=== PATIENT | female | born 1995 | race Native Hawaiian/Other Pacific Islander ===

== ENCOUNTER 2017-06-27 16:03 | Emergency (ER) | payer OTHER ==
[~2017-06-27] VITALS: Ht 157.5 cm; Wt 50.0 kg
[2017-06-27 16:04] VITALS: BP 118/64
[2017-06-27] MEDS ORDERED: NORC1TAB4 PO (18:08)
[2017-06-27] MEDS ORDERED: CLIN150C14 PO (18:08)
[2017-06-27] MEDS ORDERED: NORCOTAB PO (19:36)
== END 2017-06-27 18:13 | disposition home or self-care (01) ==
LOC: M ED 16:03
DX: R68.84 Jaw pain (principal); Z87.448 Personal history of other diseases of urinary system; Z88.0 Allergy status to penicillin

== ENCOUNTER 2017-07-09 02:32 | Emergency (ER) | payer OTHER ==
[~2017-07-09] VITALS: Ht 160 cm; Wt 50.0 kg
[~2017-07-09 02:32] MED LIST: CLIN150C14 PO; NORC1TAB4 PO; NORCOTAB PO
[2017-07-09] MEDS ORDERED: METAL LOCK LOOP XX ONE (03:53)
[2017-07-09] MEDS ORDERED: ZOFR4TAB3 PO (07:20)
[2017-07-09] MEDS ORDERED: ONDANSETRON 4 MG ORAL DISINTEGRATING TAB (S0181) PO ONE (07:30)
[2017-07-09 07:32] VITALS: BP 121/74
== END 2017-07-09 07:33 | disposition home or self-care (01) ==
LOC: M ED 02:32
DX: L42 Pityriasis rosea (principal); B09 Unspecified viral infection characterized by skin and mucous membrane lesions; J06.9 Acute upper respiratory infection, unspecified; Z88.0 Allergy status to penicillin

== ENCOUNTER 2017-10-23 19:20 | Emergency (ER) | payer OTHER ==
[2017-10-23] MEDS: ACETAMINOPHEN 325 MG TAB PO (20:00)
[2017-10-23 20:08] LABS: BASO # 0.1 10^3/uL (0.0-0.2); BASO % 0.6 % (0.0-1.0); EOS # 0.3 10^3/uL (0.0-0.50); EOS % 2.6 % (0.0-3.0); HEMATOCRIT 34.5 % (36.0-47.0); IMMATURE GRANULOCYTE % 0.3 % (0-3.0); LYMPH # 2.8 10^3/uL (1.5-6.5); LYMPH % 25.4 % (24.0-44.0); MEAN CORPUSCULAR HEMOGLOBIN 31.3 pg (27.0-33.0); MEAN CORPUSCULAR HGB CONC 34.8 g/dl (32.0-36.5); MEAN CORPUSCULAR VOLUME 89.8 fl (80.0-96.0); MONO # 1.3 10^3/uL (0.0-0.8); MONO % 12.2 % (0.0-5.0); NEUTROPHILS # 6.4 10^3/uL (1.8-7.7); NEUTROPHILS % 58.9 % (36.0-66.0); PLATELET COUNT, AUTOMATED 278 10^3/uL (150-450); RED BLOOD COUNT 3.84 10^6/uL (4.00-5.40); RED CELL DISTRIBUTION WIDTH 11.6 % (11.5-14.5); WHITE BLOOD COUNT 10.9 10^3/uL (4.0-10.0)
[2017-10-23 20:36] LABS: ANION GAP 7 MEQ/L (8-16); BLOOD UREA NITROGEN 9 MG/DL (7-18); CALCIUM LEVEL 8.6 MG/DL (8.5-10.1); CARBON DIOXIDE LEVEL 25 MEQ/L (21-32); CHLORIDE LEVEL 110 MEQ/L (98-107); CREATININE FOR GFR 0.63 MG/DL (0.55-1.30); GLOMERULAR FILTRATION RATE > 60.0 (>60); GLUCOSE, FASTING 82 MG/DL (70-100); HCG, SERUM QUANTITATIVE < 1.0 MIU/ML; POTASSIUM SERUM 3.9 MEQ/L (3.5-5.1); SODIUM LEVEL 142 MEQ/L (136-145)
[2017-10-23 20:45] LABS: APPEARANCE, URINE CLEAR (CLEAR); BACTERIA, URINE AUTO 1+ (NEGATIVE); BILIRUBIN, URINE AUTO NEGATIVE (NEGATIVE); BLOOD, URINE BLOOD 3+ (NEGATIVE); COLOR, URINE STRAW (YELLOW); GLUCOSE, URINE (UA) AUTO NEGATIVE (NEGATIVE); KETONE, URINE AUTO NEGATIVE (NEGATIVE); LEUKOCYTE ESTERASE, URINE AUTO NEGATIVE (NEGATIVE); NITRITE, URINE AUTO NEGATIVE (NEGATIVE); PROTEIN, URINE AUTO NEGATIVE (NEGATIVE); RBC, URINE AUTO 16 /HPF (0-3); SPECIFIC GRAVITY URINE AUTO 1.004 (1.002-1.035); SQUAMOUS EPITHELIAL CELL UR AU 0 /HPF (0-6); UROBILINOGEN, URINE AUTO 0.2 mg/dL (0.0-2.0); WBC, URINE AUTO 1 /HPF (0-3)
== END 2017-10-23 22:14 | disposition home or self-care (01) ==
LOC: M ED 19:20
DX: N93.9 Abnormal uterine and vaginal bleeding, unspecified (principal); Z88.0 Allergy status to penicillin
CPT/HCPCS: 76801

== ENCOUNTER 2017-12-29 20:54 | Emergency (ER) | payer OTHER ==
[2017-12-29] MEDS: NS 1,000 ML IV (21:30)
[2017-12-29] MEDS: ONDANSETRON 4MG/2ML VIAL (J2405) IV (21:30)
[2017-12-29] MEDS: MORPHINE 4 MG/ML 1ML VIAL/SYRINGE (J2270) IV (22:11)
[2017-12-29 22:12] LABS: BASO # 0.1 10^3/uL (0.0-0.2); BASO % 0.4 % (0.0-1.0); EOS # 0.1 10^3/uL (0.0-0.50); EOS % 0.8 % (0.0-3.0); HEMATOCRIT 34.4 % (36.0-47.0); HEMOGLOBIN 11.7 g/dl (12.0-15.5); IMMATURE GRANULOCYTE % 0.4 % (0-3.0); LYMPH # 2.3 10^3/uL (1.5-6.5); LYMPH % 13.9 % (24.0-44.0); MEAN CORPUSCULAR HEMOGLOBIN 31.3 pg (27.0-33.0); MONO # 1.6 10^3/uL (0.0-0.8); MONO % 9.9 % (0.0-5.0); NEUTROPHILS # 12.1 10^3/uL (1.8-7.7); NEUTROPHILS % 74.6 % (36.0-66.0); PLATELET COUNT, AUTOMATED 288 10^3/uL (150-450); RED BLOOD COUNT 3.74 10^6/uL (4.00-5.40); WHITE BLOOD COUNT 16.2 10^3/uL (4.0-10.0)
[2017-12-29 22:14] LABS: KETONE, URINE AUTO RFX TRACE mg/dL (NEGATIVE); MUCUS, URINE RFX SMALL (NEGATIVE); NITRITE, URINE AUTO RFX NEGATIVE (NEGATIVE); RBC, URINE AUTO RFX 10 /HPF (0-3); SPECIFIC GRAVITY UR AUTO RFX 1.008 (1.002-1.035); SQUAM EPITHELIAL CELL UR AURFX 1 /HPF (0-6)
[2017-12-29 22:15] LABS: LEUKOCYTE ESTERASE UR AUTO RFX 3+ (NEGATIVE); WBC, URINE AUTO RFX 71 /HPF (0-3)
[2017-12-29 22:33] LABS: CONTROL LINE HCG INT CTR LINE PRESENT; HCG, SERUM QUALITATIVE NEGATIVE (NEGATIVE)
[2017-12-29 22:42] LABS: ALBUMIN 3.6 GM/DL (3.2-5.2); ALBUMIN/GLOBULIN RATIO 0.95 (1.00-1.93); ALKALINE PHOSPHATASE 59 U/L (45-117); ALT/SGPT 22 U/L (12-78); ANION GAP 6 MEQ/L (8-16); AST/SGOT 14 U/L (7-37); BILIRUBIN,DIRECT 0.1 MG/DL (0.0-0.2); BILIRUBIN,TOTAL 0.4 MG/DL (0.2-1.0); BLOOD UREA NITROGEN 10 MG/DL (7-18); CALCIUM LEVEL 8.6 MG/DL (8.5-10.1); CARBON DIOXIDE LEVEL 27 MEQ/L (21-32); CHLORIDE LEVEL 106 MEQ/L (98-107); CREATININE FOR GFR 0.78 MG/DL (0.55-1.30); GLOMERULAR FILTRATION RATE > 60.0 (>60); GLUCOSE, FASTING 103 MG/DL (70-100); LIPASE 118 U/L (73-393); POTASSIUM SERUM 4.2 MEQ/L (3.5-5.1); SODIUM LEVEL 139 MEQ/L (136-145); TOTAL PROTEIN 7.4 GM/DL (6.4-8.2)
[2017-12-30] MEDS: CIPROFLOXACIN 400 MG in APPROPRIATE DILUENT 1 EA IV (00:12)
== END 2017-12-30 02:12 | disposition home or self-care (01) ==
LOC: M ED 12-30 02:12
DX: N10 Acute pyelonephritis (principal); Z88.0 Allergy status to penicillin
CPT/HCPCS: J2270

== ENCOUNTER → 2019-05-08 | Outpatient (REF) | payer OTHER ==
[~2019-05-08] MED LIST changes: +BACT800T5 PO; +CIPR-249 PO; +HYDR-3715 PO; -NORC1TAB4 PO; +NORC1TAB7 PO; -NORCOTAB PO; +ZOFR4TAB14 PO
== END ==
LOC: M LAB REF 16:21
PROVIDERS: ATTEND Physician Assistant
DX: J02.9 Acute pharyngitis, unspecified (principal)

== ENCOUNTER 2019-08-02 23:46 | Inpatient (IN) | payer OTHER ==
[~2019-08-02] VITALS: Ht 160 cm; Wt 76.3 kg
[2019-08-03] VITALS (13 sets, daily range): BP systolic 95–129; BP diastolic 46–80
[2019-08-03] MEDS ORDERED: PRENTAB9 PO (00:14)
[2019-08-03 03:27] LABS: BASO # 0.1 10^3/uL (0.0-0.2); BASO % 0.3 % (0.0-1.0); EOS % 0.1 % (0.0-3.0); HEMOGLOBIN 10.6 g/dl (12.0-15.5); LYMPH # 1.7 10^3/uL (1.5-5.0); LYMPH % 8.1 % (24.0-44.0); MEAN CORPUSCULAR HEMOGLOBIN 27.9 pg (27.0-33.0); MEAN CORPUSCULAR HGB CONC 32.1 g/dl (32.0-36.5); MEAN CORPUSCULAR VOLUME 86.8 fl (80.0-96.0); MONO # 1.5 10^3/uL (0.0-0.8); MONO % 7.1 % (0.0-5.0); NEUTROPHILS # 17.6 10^3/uL (1.5-8.5); NEUTROPHILS % 83.7 % (36.0-66.0); PLATELET COUNT, AUTOMATED 331 10^3/uL (150-450)
[2019-08-03] MEDS ORDERED: LACTATED RINGER'S 1000 ML IV STA (04:10)
[2019-08-03] MEDS ORDERED: LR 1,000 ML IV SCH (04:10)
--- NOTE | 2019-08-03 04:34 | HPEPDOC ---
Obstetrical History & Physical General Date of Admission Aug 03, 2019 at 02:47 History of Present Illness Genesis is a 24yo with SIUP at 39w6d by lmp c/w 8wk u/s presenting with painful, regular ctx. No LOF. No vaginal bleeding. Good movement. No f/c/n/v/CP/SOB. 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 Past Medical History Medical History Overweight, hx of nephrolithiasis and pyelo in the past, broken bones from cheerleading Surgical History: Other (left ACL repair) Family History Significant Family History: No pertinent family hx Social History Marital Status: Family situation: Spouse/partner home Psychosocial History: No pertinent psych hx * Smoker: non-smoker Alcohol: Denies Drugs: denies Imunizations Tdap status: declined Influenza Status: declined Allergies Coded Allergies: Blueberry (Verified Allergy, Severe, ANAPHYLAXIS, 08/03/19) Penicillins (Verified Allergy, Severe, ANAPHYLAXIS, 08/03/19) amoxicillin (Verified Allergy, Severe, ANAPHYLAXIS, 08/03/19) Tetanus Vaccines and Toxoid (Verified Allergy, Unknown, 08/03/19) Medications Scheduled No.137/Iron/Folic Acd ( Vitamin Tablet) 1 Each Tablet, 1 TAB PO DAILY Physical Examination Physical Examination GENERAL: Alert and oriented times three. ABDOMEN: Gravid and non-tender to touch. FETUS: Is vertex (VTX) by sterile vaginal examination (SVE) EXTREMITIES: No edema of BLE Vital Signs/I&O Vital Signs Date Time Temp Pulse Resp B/P (MAP) Pulse Ox O2 Delivery O2 Flow Rate FiO2 08/03/19 03:59 98.0 82 18 116/59 (78) Laboratory Data 24H LABS Laboratory Tests 2 08/03/19 02:52: Serology Scanned Report Hepatitis B Testing 08/03/19 03:17: Immature Granulocyte % (Auto) 0.7, Neutrophils (%) (Auto) 83.7H, Lymphocytes (%) (Auto) 8.1L, Monocytes (%) (Auto) 7.1H, Eosinophils (%) (Auto) 0.1, Basophils (%) (Auto) 0.3, Neutrophils # (Auto) 17.6H, Lymphocytes # (Auto) 1.7, Monocytes # (Auto) 1.5H, Eosinophils # (Auto) 0.0, Basophils # (Auto) 0.1, Nucleated Red Blood Cells % (auto) 0.0 CBC/BMP Laboratory Tests 08/03/19 03:17 Pertinent Laboratoy Data Blood Type: A+ RBC Antibody Screen: Negative HIV: Negative Hepatitis B: Negative Hepatitis C: Unknown Rapid Plasma Reagin: Nonreactive Rubella: Immune Varicella: Immune Chlamydia/Gonorrhea: Negative Group B Streptococcus: Negative Quad Screen Test: Negative Cystic Fibrosis: Negative Glucose Tolerance Test: 133 Anatomy Ultrasound Ultrasound Date: Mar 21, 2019 Placenta Location: Posterior Normal Anatomy: Yes Placenta Previa: No Steroid Therapy Steroid Therapy: No Vaginal Examination Dilation: 6 cm Effacement: 80% Station: -2 Cervical Consistency: Soft Cervical Position: Middle Presentation: Cephalic presentation Assessment Heart Rate (FHR): 140 Variability: Moderate Accelerations: Positive Decelerations: None Tocometer Contractions: Yes Frequency: regular, every 2-5 min. Duration: greater than 60 seconds Strength: palpated as strong Assessment/Plan Assessment Genesis is a 24yo with SIUP at 39w6d by lmp c/w 8wk u/s in active labor with SCE changed from 2/60/-2 to 4/75/-2 over 2 hours having regular ctx q2- 3min. Cat I FHRT. Vitals wnl. Benign exam. Cephalic by SCE. AROM performed at 0420 with clear fluid noted, presently 6/90/-2. GBS negative. PMhx/ course significant for: overweight starting BMI 26, anemia taking iron/vit C Plan Admit and orient. Numerologist and consent. Diet: clear liquids Group B Streptococcus (GBS) negative Labs and intravenous (IV) per unit protocol. Lactated Ringers (LR): Bolus 500 mL, then at 125 mL/hr. Anticipate normal spontaneous delivery () Candidate for epidural as desired MD Maryam Alan Katrina D MD Aug 03, 2019 04:34
--- NOTE | 2019-08-03 05:31 | IPNPDOC ---
Text Note Date of Service The patient was seen on 08/03/19. NOTE Intrapartum Note Pt is feeling urge to bear down with ctx. She still declines epidural. Vitals wnl, afebrile Cat I FHRT [place]: ctx q2-3min SCE: /-2, clear fluid Discussed option of epidural with patient, she still declines Discussed that she cannot bear down on cervix or risks tearing or swelling of cervix Will continue to closely monitor Safe to proceed Dr. Joan Francisco MD VS,Socrates, I+O VSSocrates I+O Laboratory Tests 08/03/19 03:17 Vital Signs Date Time Temp Pulse Resp B/P (MAP) Pulse Ox O2 Delivery O2 Flow Rate FiO2 08/03/19 03:59 98.0 82 18 116/59 (78) Joan Francisco MD Aug 03, 2019 05:31
[2019-08-03] MEDS ORDERED: OXYTOCIN 30 UNITS IN 0.9% NaCl 500ML IV BAG (J2590) As Ordered ONE (06:11)
[2019-08-03 06:35] LABS: CORD GAS ABE A -13.1; CORD GAS ABE V -9.5; CORD GAS HCO3 A 16.6 MEQ/L; CORD GAS HCO3 V 17.1 MEQ/L; CORD GAS O2 SAT A 57.9 %; CORD GAS O2 SAT V 45.8 %; CORD GAS PCO2 A 51.9 mmHg; CORD GAS PH A 7.122 UNITS; CORD GAS PH V 7.249 UNITS; CORD GAS PO2 A 31.3 mmHg; CORD GAS PO2 V 22.2 mmHg; CORD GAS SBC A 13.9 MEQ/L; CORD GAS SBC V 15.9 MEQ/L; CORD GAS TCO2 A 18.2 MEQ/L; CORD GAS TCO2 V 18.3 MEQ/L
[2019-08-03] MEDS ORDERED: OXYTOCIN DRIP 30 UNITS in IV 1 EA IV SCH (06:44)
[2019-08-03] MEDS ORDERED: DIBUCAINE 1% OINTMENT 30GM TOP PRN (06:45)
[2019-08-03] MEDS ORDERED: IBUPROFEN 600 MG TAB PO PRN (06:45)
[2019-08-03] MEDS ORDERED: ACETAMINOPHEN TAB 650MG DOSE (2X325MG) PO PRN (06:45)
[2019-08-03] MEDS ORDERED: RHOGAM 300 MCG (1500 IU) INJ (J2790) IM SCH (06:45)
[2019-08-03] MEDS ORDERED: MEASLES,MUMPS,RUBELLA VACCINE INJ (MMR-II) (90707) SC SCH (06:45)
[2019-08-03] MEDS ORDERED: LIDOCAINE 1% MDV 20ML VIAL INFIL ONE (06:45)
[2019-08-03] MEDS ORDERED: DOCUSATE SODIUM 100 MG CAP PO PRN (06:45)
--- NOTE | 2019-08-03 06:55 | DNPDOC ---
[facility] Delivery Note Delivery Note DATE OF DELIVERY: 03 Aug 2019 PREDELIVERY DIAGNOSIS: 39w6d gestation and labor. POST DELIVERY DIAGNOSIS: Delivered. PROCEDURE: Spontaneous vaginal delivery INTELLIGENCE APPLICATIONS: Dr. Joan Francisco MD ANESTHESIA: 1% lidocaine for repair ESTIMATED BLOOD LOSS: 200 mL. FINDINGS: 7 pound 9 ounce (3430g) male infant, Score 9/9 Cord gases: pHa 7.122 BE -13.1, pHv 7.249 BE -9.5 DELIVERY SUMMARY: Genesis is a 24yo [id number] s/p uncomplicated at 39w6d after presenting in active labor, delivering at 0609 on 08/03/2019. She was admitted at 4cm and had AROM, clear, then progressed to complete withOUT an epidural. She reached C/C/+1 and began pushing. 's head delivered OA with Ritgen's maneuver, which was used to hasten delivery since the heart rate went down to the 80's-low 100's. head restituted WILTON. Left anterior shoulder delivered followed by posterior shoulder and corpus. Infant was vigorous, had spontaneous cry, placed on maternal chest, apgars 9/9, nose and mouth suctioned with bulb suction. Cord was clamped x2 and cut by FOB. With traction on the cord and uterine massage, placenta delivered spontaneously and intact with 3 vessel centrally inserted cord. More uterine massage performed with fundus then firm at u-2cm. Inspection of perineum and vagina revealed superficial bilateral labial lacerations and a small patrick at the hymenal ring which were all reapproximated in routine fashion using 3-0 vicryl and 4-0 vicryl (after anesthetizing with 1% lidocaine) with complete hemostasis and total reapproximation. All counts correct x2. Mom and were doing well when I left the room. MD Maryam Alan Katrina D MD Aug 03, 2019 06:54
[2019-08-03] MEDS: PRENATAL VITAMINS CHEWABLE TABLET PO SCH (09:05)
[2019-08-03] MEDS: ACETAMINOPHEN 500 MG TAB PO PRN (13:00)
[2019-08-03] MEDS: IBUPROFEN 800 MG TAB PO PRN (22:26)
[2019-08-04] MEDS: ACETAMINOPHEN 500 MG TAB PO PRN ×2 (05:51→21:48)
[2019-08-04 05:52] VITALS: BP 109/57
--- NOTE | 2019-08-04 08:06 | IPNPDOC ---
Progress Note Date of Service: Aug 04, 2019 Progress Note Ms. Dasilva is a 24 yo G2 now P1 who underwent an uncomplicated on 03Aug2019 after being admitted for active labor. No acute events yesterday or overnight. Genesis reports feeling well this morning. She is ambulating, voiding on her own, tolerating a regular diet, and has minimal lochia. Vitals - VSS, afebrile, normotensive, non tachycardic General - AAOX3, sitting up in bed, NAD, pleasant and conversant Abdomen - Fundus firm at U-2. No fundal tenderness. Extremities - No edema Ms. Dasilva is doing well and is making an appropriate recovery. Continue routine care. Anticipate discharge home tomorrow. All patient questions answered. Lalo Garrison DO VS, I&O, 24H, Fishbongeronimo Vital Signs/I&O Vital Signs Date Time Temp Pulse Resp B/P (MAP) Pulse Ox O2 Delivery O2 Flow Rate FiO2 08/04/19 05:52 97.0 73 17 109/57 (74) 08/03/19 09:15 98 Room Air I&O- Last 24 Hours up to 6 AM 08/04/19 05:59 Intake Total 1660 ml Output Total 700 ml Balance 960 ml LALO GARRISON DO Aug 04, 2019 08:06
[2019-08-04] MEDS: PRENATAL VITAMINS CHEWABLE TABLET PO SCH (08:24)
[2019-08-04] MEDS: IBUPROFEN 800 MG TAB PO PRN (15:27)
[2019-08-04 18:11] VITALS: BP 116/69
[2019-08-05] MEDS: IBUPROFEN 800 MG TAB PO PRN (04:45)
[2019-08-05] MEDS: PRENATAL VITAMINS CHEWABLE TABLET PO SCH (07:49)
--- NOTE | 2019-08-05 07:59 | IPNPDOC ---
Progress Note Date of Service: Aug 05, 2019 Day#: 2 Progress Note SUBJECT: Ms. Dasilva is a 24-year-old 1 now Para 1001 status post uncomplicated spontaneous vaginal delivery at 40+3 weeks' at approximately 0320 hours on 08/03/2019 of a Female, 6lbs 5oz (2870g) with right labial aceration and small 2nd MLL, doing well day #2. She has been ambulating, voiding spontaneously without issue and tolerating regular diet. Breast feeding without issue. Reports lochia is WNL. OBJECTIVE: VITAL SIGNS: Within normal limits, afebrile. Alert and oriented times three. Non-labored breathing Abdomen: Fundus firm at U-2. Soft, NTTP. Lochia minimal. ASSESSMENT: PP Day #2, normal involution, stable; exclusively without issue. PLAN: 1. Discharge to home today. 2. Tylenol and Motrin for pain. 3. Encourage breast feeding and ambulation. 4. Routine PP visit in 6 weeks in clinic. 5. Discussed return precautions at length. VS, I&O, 24H, Fishbone Vital Signs/I&O Vital Signs Date Time Temp Pulse Resp B/P (MAP) Pulse Ox O2 Delivery O2 Flow Rate FiO2 08/04/19 18:11 97.6 76 16 116/69 (85) 08/03/19 09:15 98 Room Air MO QUIROGA CNM Aug 05, 2019 07:59
[2019-08-05] MEDS ORDERED: IBUP-1022 PO (08:05)
[2019-08-05] MEDS ORDERED: ACET-683 PO (08:05)
== END 2019-08-05 12:45 | disposition home or self-care (01) | DRG 807 ==
LOC: M LDO 23:46 → M LDI 08-03 02:47 → M OBS 08-03 08:50
PROVIDERS: ADMIT Obstetrics & Gynecology; ATTEND Obstetrics & Gynecology
PROC: 10E0XZZ Delivery of Products of Conception, External Approach (ICD-10-PCS; principal; 2019-08-03)
PROC: 0HQ9XZZ Repair Perineum Skin, External Approach (ICD-10-PCS; 2019-08-03)
DX: O70.0 First degree perineal laceration during delivery (principal); Z37.0 Single live birth; Z3A.39 39 weeks gestation of pregnancy; E66.3 Overweight; O99.214 Obesity complicating childbirth

== ENCOUNTER 2020-08-24 18:26 | Emergency (ER) | payer OTHER ==
[~2020-08-24] VITALS: Ht 160 cm; Wt 58.5 kg
[~2020-08-24 18:26] MED LIST changes: +ACET-683 PO; -CLIN150C14 PO; +CLIN150C15 PO; +IBUP-1022 PO; +PRENTAB9 PO
--- OUTSIDE RECORDS SUMMARY | 2020-08-24 18:31 | CCD ---
Author Author [facility] Address Unknown Phone Unavailable Support Name Relationship Address Phone GRACY MARK Next Of Kin [address] [place] [address] UE Next Of Kin Unknown Unavailable SHAKOPEEBOB Next Of Kin [address] [place] [address] Re-disclosure Warning The records that you are about to access may contain information from federally-assisted alcohol or drug abuse programs. If such information is present, then the following federally mandated warning applies: This information has been disclosed to you from records protected by federal confidentiality rules (42 CFR part 2). The federal rules prohibit you from making any further disclosure of this information unless further disclosure is expressly permitted by the written consent of the person to whom it pertains or as otherwise permitted by 42 CFR part 2. A general authorization for the release of medical or other information is NOT sufficient for this purpose. The Federal rules restrict any use of the information to criminally investigate or prosecute any alcohol or drug abuse patient.The records that you are about to access may contain highly sensitive health information, the redisclosure of which is protected by Article 27-F of the [facility] Public Health law. If you continue you may have access to information: Regarding HIV / AIDS; Provided by facilities licensed or operated by the [facility] Office of Mental Health; or Provided by the [facility] Office for People With Developmental Disabilities. If such information is present, then the following [facility] mandated warning applies: This information has been disclosed to you from confidential records which are protected by state law. State law prohibits you from making any further disclosure of this information without the specific written consent of the person to whom it pertains, or as otherwise permitted by law. Any unauthorized further disclosure in violation of state law may result in a fine or usp sentence or both. A general authorization for the release of medical or other information is NOT sufficient authorization for further disc losure. Family History Family Member Name Family Member Gender Family Member Status Date o f Status Description Data Source(s) Unknown Unknown Problem [facility] ([facility]) Insurance Providers Payer name Policy type / Coverage type Policy ID Covered green party ID Covered green party's relationship to walden Policy [place] Plan Information [facility] [id number] [facility] [id number] [facility] Commercial [id number] Family Dependent [id number] SELF PAY ONLY SP NCO EPALS [id number] SP [id number] NCO EPALS [id number] SP [id number] [facility] O [id number] S [id number] [facility] [id number] SP [id number]
--- OUTSIDE RECORDS SUMMARY | 2020-08-24 19:19 | CCD ---
Author Author [facility] Address Unknown Phone Unavailable Support Name Relationship Address Phone GRACY MARK Next [place] [address] [place] [address] UE Next Of Kin Unknown Unavailable BOB HORVATH Next Of Kin [address] [place] [address] Re-disclosure Warning The records that you are [...] is protected by Article 27-F of the [facility] Public Health law. If you continue you may have access to information: Regarding HIV / AIDS; Provided by facilities licensed or operated by the [facility] Office of Mental Health; or Provided by the [facility] Office for People With Developmental Disabilities. If such information is present, then the following [facility] mandated warning applies: This information has been [...] law may result in a fine or care home sentence or both. A general authorization for the release of medical or other information is NOT sufficient authorization for further disc losure. Family History Family Member Name Family Member Gender Family Member Status Date o f Status Description Data Source(s) Unknown Unknown Problem [facility] ([facility]) Insurance Providers Payer name Policy type / Coverage type Policy ID Covered republican ID Covered republican's relationship to walden Policy Walden Plan Information [facility] [id number] [facility] [id number] [facility] [id number] [facility] [id number] [facility] Commercial [id number] Family Dependent [id number] SELF PAY ONLY SP NCO EPALS [id number] SP [id number] NCO EPALS [id number] SP [id number] [facility] O [id number] S [id number] [facility] [id number] SP [id number]
[2020-08-24 19:50] LABS: BASO # 0.1 10^3/uL (0.0-0.2); BASO % 0.7 % (0.0-1.0); EOS # 0.5 10^3/uL (0.0-0.5); EOS % 3.9 % (0.0-3.0); HEMATOCRIT 38.1 % (36.0-47.0); HEMOGLOBIN 12.8 g/dl (12.0-15.5); LYMPH # 3.5 10^3/uL (1.5-5.0); LYMPH % 27.3 % (24.0-44.0); MEAN CORPUSCULAR HEMOGLOBIN 30.3 pg (27.0-33.0); MEAN CORPUSCULAR HGB CONC 33.6 g/dl (32.0-36.5); MEAN CORPUSCULAR VOLUME 90.1 fl (80.0-96.0); MONO # 1.2 10^3/uL (0.0-0.8); MONO % 9.7 % (0.0-5.0); NEUTROPHILS # 7.4 10^3/uL (1.5-8.5); NEUTROPHILS % 58.2 % (36.0-66.0); PLATELET COUNT, AUTOMATED 351 10^3/uL (150-450); RED BLOOD COUNT 4.23 10^6/uL (4.00-5.40); WHITE BLOOD COUNT 12.7 10^3/uL (4.0-10.0)
[2020-08-24 19:53] LABS: APPEARANCE, URINE HAZY (CLEAR); BACTERIA, URINE AUTO NEGATIVE (NEGATIVE); BILIRUBIN, URINE AUTO NEGATIVE (NEGATIVE); BLOOD, URINE BLOOD NEGATIVE (NEGATIVE); COLOR, URINE YELLOW (YELLOW); GLUCOSE, URINE (UA) AUTO NEGATIVE (NEGATIVE); KETONE, URINE AUTO TRACE mg/dL (NEGATIVE); LEUKOCYTE ESTERASE, URINE AUTO 1+ (NEGATIVE); MUCUS, URINE LARGE (NEGATIVE); NITRITE, URINE AUTO NEGATIVE (NEGATIVE); PROTEIN, URINE AUTO NEGATIVE (NEGATIVE); RBC, URINE AUTO 0 /HPF (0-3); SPECIFIC GRAVITY URINE AUTO 1.027 (1.002-1.035); SQUAMOUS EPITHELIAL CELL UR AU 2 /HPF (0-6); WBC, URINE AUTO 1 /HPF (0-3)
[2020-08-24 20:39] VITALS: BP 124/64
[2020-08-24 21:32] LABS: FREE THYROXINE INDEX 4.9 % (1.3-4.8); THYROID STIMULATING HORMONE 0.236 uIU/ML (0.358-3.740); THYROXINE (T4) 16.4 UG/DL (4.5-12.0)
== END 2020-08-24 20:53 | disposition home or self-care (01) ==
LOC: M ED 18:26
DX: R19.5 Other fecal abnormalities (principal); R63.4 Abnormal weight loss; Z91.018 Allergy to other foods; Z88.0 Allergy status to penicillin; Z88.7 Allergy status to serum and vaccine; Z87.442 Personal history of urinary calculi; Z87.19 Personal history of other diseases of the digestive system

== ENCOUNTER 2020-10-14 16:14 | Emergency (ER) | payer OTHER ==
[~2020-10-14] VITALS: Ht 160 cm; Wt 55.9 kg
[2020-10-14] MEDS ORDERED: UNIS25TA5 PO (16:27)
[2020-10-14] MEDS ORDERED: PREN1CHW6 PO (16:27)
[2020-10-14] MEDS ORDERED: PYRI25TA2 PO (16:27)
[2020-10-14] MEDS ORDERED: NS 1,000 ML IV ONE (17:00)
[2020-10-14] MEDS ORDERED: ONDANSETRON 4MG/2ML VIAL IV ONE (17:00)
[2020-10-14] MEDS ORDERED: ACETAMINOPHEN 500 MG TAB PO ONE (17:15)
--- NOTE | 2020-10-14 17:56 | REP ---
INDICATION: cough, fever, 15wks preg COMPARISON: None. TECHNIQUE: Portable AP view of the chest FINDINGS: The mediastinum and cardiac silhouette are stable and within normal limits for portable technique. The lung mckinnon demonstrate increased interstitial markings which may reflect reactive airway disease versus viral pneumonia. No focal consolidation. No effusion. No pneumothorax. Skeletal structures intact. IMPRESSION: Cannot exclude mild viral pneumonia or reactive airway disease. No focal consolidation or effusion. <Electronically signed by Mohinder Nasasr > 10/14/20 [id number]
[2020-10-14 18:05] LABS: BASO # 0.1 10^3/uL (0.0-0.2); BASO % 0.7 % (0.0-1.0); EOS # 0.1 10^3/uL (0.0-0.5); EOS % 0.9 % (0.0-3.0); HEMATOCRIT 37.3 % (36.0-47.0); HEMOGLOBIN 12.5 g/dl (12.0-15.5); LYMPH # 0.9 10^3/uL (1.5-5.0); LYMPH % 12.4 % (24.0-44.0); MEAN CORPUSCULAR HEMOGLOBIN 30.3 pg (27.0-33.0); MEAN CORPUSCULAR HGB CONC 33.5 g/dl (32.0-36.5); MEAN CORPUSCULAR VOLUME 90.3 fl (80.0-96.0); MONO # 0.8 10^3/uL (0.0-0.8); NEUTROPHILS # 5.1 10^3/uL (1.5-8.5); NEUTROPHILS % 73.6 % (36.0-66.0); PLATELET COUNT, AUTOMATED 298 10^3/uL (150-450); RED BLOOD COUNT 4.13 10^6/uL (4.00-5.40); WHITE BLOOD COUNT 6.9 10^3/uL (4.0-10.0)
[2020-10-14 18:07] LABS: APPEARANCE, URINE CLEAR (CLEAR); BACTERIA, URINE AUTO NEGATIVE (NEGATIVE); BILIRUBIN, URINE AUTO NEGATIVE (NEGATIVE); BLOOD, URINE BLOOD NEGATIVE (NEGATIVE); COLOR, URINE STRAW (YELLOW); GLUCOSE, URINE (UA) AUTO NEGATIVE (NEGATIVE); KETONE, URINE AUTO NEGATIVE (NEGATIVE); LEUKOCYTE ESTERASE, URINE AUTO TRACE (NEGATIVE); NITRITE, URINE AUTO NEGATIVE (NEGATIVE); PROTEIN, URINE AUTO NEGATIVE (NEGATIVE); RBC, URINE AUTO 1 /HPF (0-3); SPECIFIC GRAVITY URINE AUTO 1.003 (1.002-1.035); SQUAMOUS EPITHELIAL CELL UR AU 2 /HPF (0-6); UROBILINOGEN, URINE AUTO 0.2 mg/dL (0.0-2.0); WBC, URINE AUTO 0 /HPF (0-3)
[2020-10-14 18:35] LABS: RSV AMPLIFICATION NEGATIVE (NEGATIVE)
[2020-10-14 19:22] LABS: BLOOD UREA NITROGEN 3 MG/DL (7-18); CALCIUM LEVEL 9.1 MG/DL (8.5-10.1); CARBON DIOXIDE LEVEL 19 MEQ/L (21-32); CHLORIDE LEVEL 106 MEQ/L (98-107); CREATININE FOR GFR 0.65 MG/DL (0.55-1.30); GLOMERULAR FILTRATION RATE > 60.0 (>60); GLUCOSE, FASTING 69 MG/DL (70-100); POTASSIUM SERUM 3.5 MEQ/L (3.5-5.1); SODIUM LEVEL 135 MEQ/L (136-145)
[2020-10-14 19:35] LABS: ALBUMIN 3.5 GM/DL (3.2-5.2); ALT/SGPT 16 U/L (12-78); BILIRUBIN,DIRECT < 0.1 MG/DL (0.0-0.2); BILIRUBIN,TOTAL 0.3 MG/DL (0.2-1.0); LIPASE 94 U/L (73-393); TOTAL PROTEIN 7.7 GM/DL (6.4-8.2)
[2020-10-14] MEDS ORDERED: ONDA4TAB6 PO (20:11)
[2020-10-14] MEDS ORDERED: ONDANSETRON 4 MG ORAL DISINTEGRATING TAB PO ONE (20:20)
[2020-10-14 20:32] VITALS: BP 105/60
== END 2020-10-14 20:34 | disposition home or self-care (01) ==
LOC: M ED 16:14
DX: O98.512 Other viral diseases complicating pregnancy, second trimester (principal); U07.1 COVID-19; R05 Cough; R50.9 Fever, unspecified; O21.9 Vomiting of pregnancy, unspecified; Z88.0 Allergy status to penicillin; Z88.1 Allergy status to other antibiotic agents; Z88.7 Allergy status to serum and vaccine; Z79.899 Other long term (current) drug therapy; Z3A.15 15 weeks gestation of pregnancy
CPT/HCPCS: 36415; 71045; 80048; 80076; 81001; 83690; 85025; 87040; 87086; 87631; 87804; 96361; 96374; 99284; J2405; Q0162

== ENCOUNTER 2021-03-24 17:42 | Inpatient (IN) | payer OTHER ==
[~2021-03-24] VITALS: Ht 160 cm; Wt 70.7 kg
[~2021-03-24 17:42] MED LIST changes: -CLIN150C15 PO; +CLIN150C17 PO; +ONDA4TAB6 PO; +PREN1CHW6 PO; +PYRI25TA2 PO; +UNIS25TA5 PO
[2021-03-24 17:54] VITALS: BP 127/61
[2021-03-24] MEDS ORDERED: ACET-311 PO (17:57)
[2021-03-24] MEDS ORDERED: IRON27TA2 PO (17:59)
[2021-03-24] MEDS ORDERED: VITA250T4 PO (17:59)
[2021-03-24] MEDS ORDERED: HOME MED LIST COMPLETE! XX SCH (18:00)
[2021-03-24] MEDS ORDERED: LACTATED RINGER'S 1000 ML IV STA (18:38)
[2021-03-24] MEDS ORDERED: OXYTOCIN DRIP 30 UNITS in IV 1 EA IV SCH (18:40)
[2021-03-24] MEDS ORDERED: METHYLERGONOVINE MALEATE 0.2 MG/ML VIAL (J2210) IM PRN (18:40)
[2021-03-24] MEDS ORDERED: OXYTOCIN INJ 10 UNITS/ML VIAL (J2590) IM PRN (18:40)
[2021-03-24] MEDS ORDERED: TRANEXAMIC ACID INJection 1,000 MG in NS 100 ML IV PRN (18:40)
[2021-03-24] MEDS ORDERED: LR 1,000 ML IV SCH ×2 (18:40→23:35)
[2021-03-24] MEDS ORDERED: OXYTOCIN INJ 10 UNITS/ML VIAL (J2590) IV PRN (18:40)
[2021-03-24] MEDS ORDERED: LIDOCAINE 1% MDV 20ML VIAL INFIL PRN (18:40)
[2021-03-24] MEDS ORDERED: CARBOPROST TROMETHAMINE 250 MCG/ML AMP IM PRN (18:40)
[2021-03-24] MEDS ORDERED: miSOPROStol 25MCG 1/4 TABLET PO ONE (18:40)
[2021-03-24] MEDS ORDERED: OXYTOCIN DRIP 30 UNITS in IV 1 EA IV PRN ×6 (18:40)
[2021-03-24 18:55] VITALS: BP 119/65
--- NOTE | 2021-03-24 18:59 | HPEPDOC ---
Obstetrical History & Physical General Date of Admission Mar 24, 2021 at 18:37 History of Present Illness 26 yo @ 38W3D by 7wk us who is admitted for cat II tracing with intermitted variable decels after presenting for decreased movements for 24hrs. She denies any vaginal bleeding, abnormal vaginal discharge, leakage of fluids, urinary symptoms, or regular contractions. She denies any new headaches, visual abnormalities, chest pain, worsening dyspnea, facial swelling, or upper extremity swelling. 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 Past Medical History Medical History PENICILLIN ALLERGY- ANAPHYLAXIS Surgical History: [place] teeth Family History Significant Family History: No pertinent family hx Social History Marital Status: Family situation: Spouse/partner home Psychosocial History: No pertinent psych hx * Smoker: non-smoker Alcohol: Denies Drugs: denies Abuse Violence Screening Have you been hit/kicked/slapp: No Have you been sexually assault: No Imunizations Tdap status: declined Influenza Status: needs Allergies Coded Allergies: Blueberry (Verified Allergy, Severe, ANAPHYLAXIS, 10/14/20) Penicillins (Verified Allergy, Severe, ANAPHYLAXIS, 10/14/20) amoxicillin (Verified Allergy, Severe, ANAPHYLAXIS, 10/14/20) Tetanus Vaccines and Toxoid (Verified Allergy, Unknown, 10/14/20) Medications Scheduled Ascorbic Acid (Vitamin C) 250 Mg Tablet, 1 TAB PO DAILY Ferrous Gluconate (Iron) 236 Mg Tablet, 1 TAB PO DAILY Vit37/Iron/Folic Acid ([place] Chewable Tablet) 1 Each Tab.chew, 1 TAB PO DAILY Scheduled PRN Acetaminophen (Pain Relief) 500 Mg Tablet, 500 MG PO Q6HP PRN for pain Physical Examination Physical Examination GENERAL: Alert and oriented times three. BREAST: . ABDOMEN: Gravid and non-tender to touch. FETUS: Is vertex (VTX) by sterile vaginal examination (SVE), AND TAUS HEART RATE: Regular rate and rhythm. LUNGS: Clear to auscultation (CTA). EXTREMITIES: No edema. SVE: 250/-1 Vital Signs/I&O Vital Signs Date Time Temp Pulse Resp B/P (MAP) Pulse Ox O2 Delivery O2 Flow Rate FiO2 03/24/21 17:54 97.2 71 18 127/61 (83) Room Air Pertinent Laboratoy Data Blood Type: A+ RBC Antibody Screen: Negative HIV: Negative Hepatitis B: Negative Hepatitis C: Unknown Rapid Plasma Reagin: Nonreactive Rubella: Immune Varicella: Immune Chlamydia/Gonorrhea: Negative Group B Streptococcus: Negative Quad Screen Test: Negative Cystic Fibrosis: Negative Glucose Tolerance Test: 122 Anatomy Ultrasound Placenta Location: Anterior Normal Anatomy: Yes Placenta Previa: No Vaginal Examination Dilation: 2cm Effacement: 50% Station: -1 Cervical Consistency: Medium Cervical Position: Posterior Presentation: Cephalic presentation Assessment Variability: Moderate Accelerations: Positive Decelerations: Variable Tocometer Contractions: Yes Frequency: irregular Duration: less than 60 seconds Multi-drug resistant Organism: No history of MDRO Assessment/Plan Assessment Assessment: 26 yo @ 38W3D by 7wk us who is admitted for cat II tracing with intermitted variable decels after presenting for decreased movements for 24hrs. APC: Anemia Hyperemesis SVE: 50/-1 GBS NEG Cephalic by TAUS EFW 3200 RH POS Placenta anterior, no previa Plan Plan: - Admit to L&D. - Consent signed and given to RN - CBC with type and screen. - EFM x2 - Anesthesia to see - Risks of augmentation with Cytotec, [place]-Bulb, and Pitocin discussed with patient. -Start cervical ripening with 25mcg of cytotec PO, REPEAT Q4HRS as indicated, Labor and Delivery Counseling We will deliver your baby through the vagina with possible assistance of forceps or vacuum device if needed for maternal or indications. Forceps and vacuum are devices that can assist with vaginal delivery when normal pushing efforts cannot achieve delivery on their own or when delivery is needed in an emergency for baby's well-being. Medications may be required to induce or augment (help) your labor in order to achieve a vaginal delivery. An episiotomy may be required to help your baby to delivery vaginally. You may also require repair of any lacerations or tears of your vagina or vulva that are caused by delivery. In some cases, emergencies can occur that require an emergency section delivery so quickly that there may not be enough time to stop and complete consent forms for section. Understand that if this occurs, your provide rs will discuss the need for a section with you before they proceed with surgery. section is the delivery of your baby through an incision in your abdomen. In some situations, section may be safer to mom and baby than continuing labor and is only performed when clinically indicated. Risks of vaginal delivery include but are not limited to: Bleeding, infection, injury to the vagina, pelvic structures, injury to baby, damage to the uterus, reactions to anesthesia, uterine rupture, risk of hysterectomy for life threatening bleeding, or . Medications used to induce or augment labor may increase your risk for infection, uterine tachysystole, uterine rupture, heart rate abnormalities, need for emergency delivery or possible hysterectomy, and hemorrhage. Additional risks for use of forceps and vacuum include: increased risk of perineal and vaginal lacerations, risk of urinary or bowel incontinence, increased risk of injury to baby with bruising, scratches, hematomas on the head, or intracranial bleeding. XOCHILT PALACIOS MD Mar 24, 2021 18:59
[2021-03-24 19:22] LABS: HEMATOCRIT 27.7 % (36.0-47.0); MEAN CORPUSCULAR HEMOGLOBIN 28.4 pg (27.0-33.0); MEAN CORPUSCULAR HGB CONC 32.5 g/dl (32.0-36.5); MEAN CORPUSCULAR VOLUME 87.4 fl (80.0-96.0); PLATELET COUNT, AUTOMATED 287 10^3/uL (150-450); RED BLOOD COUNT 3.17 10^6/uL (4.00-5.40)
[2021-03-24] MEDS ORDERED: OXYTOCIN INJ 10 UNITS/ML VIAL (J2590) As Ordered ONE (21:49)
[2021-03-24] MEDS ORDERED: KETOROLAC 60MG 2ML VIAL As Ordered ONE (21:49)
[2021-03-24] MEDS ORDERED: MORPHINE PRES-FREE INJ 10 MG/10 ML VIAL (J2274) As Ordered ONE (21:49)
[2021-03-24] MEDS ORDERED: dexameTHASONE 4 MG/ML 1ML VIAL (J1100 PER 1MG) As Ordered ONE (21:50)
[2021-03-24] MEDS ORDERED: GENTAMICIN 100 MG in IV 1 EA IV ONE (21:50)
[2021-03-24] MEDS ORDERED: ONDANSETRON 4MG/2ML VIAL As Ordered ONE (21:50)
[2021-03-24] MEDS ORDERED: CLINDAMYCIN 900 MG in IV 1 EA IV ONE (21:50)
[2021-03-24] MEDS ORDERED: ePHEDrine SULFATE 25 MG/5 ML(5MG/ML) SYRINGE As Ordered ONE (21:50)
[2021-03-24] MEDS ORDERED: PHENYLephrine 500MCG 5ML (100MCG/ML) SYRINGE As Ordered ONE (21:50)
[2021-03-24] MEDS ORDERED: OXYTOCIN 30 UNITS IN 0.9% NaCl 500ML IV BAG (J2590) As Ordered ONE (21:53)
[2021-03-24] MEDS ORDERED: BICITRA 30ML SOLN UDC As Ordered ONE (21:57)
--- NOTE | 2021-03-24 21:57 | IPNPDOC ---
Obstetrical Progress Note Date of Service Mar 24, 2021 Subjective To room for assessment. patient is feeling contractions more FHT: 130, Mod ron,+accels, repeatitive variable decels-- cat II tracing [place]: -10/15, cytotec was given 1944 (25mcg) SVE: /-2 PER RN (2119) A/P Latent labor. cat II tracing remote from delivery. we discussed intolerance while patient is still 2 cm. we discussed that at this time baby seems to be intolerant of labor and we are nowhere near delivery, I am recommanding delivery for NRFHT remote from delivery. patient expressed understanding and agree with plan of care. 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
[2021-03-24] MEDS ORDERED: ONDANSETRON 4MG/2ML VIAL IV PRN ×2 (22:00→23:20)
[2021-03-24] MEDS ORDERED: NALBUPHINE HCL 10 MG/ML AMP (J2300) IV PRN (22:00)
[2021-03-24] MEDS ORDERED: diphenhydrAMINE 50MG/ML VIAL (J1200) IV PRN (22:00)
[2021-03-24] MEDS ORDERED: NALOXONE INJ 0.4MG/1ML VIAL (J2310 PER 1MG) IV PRN ×2 (22:00)
[2021-03-24] MEDS ORDERED: METOCLOPRAMIDE INJ 10MG/2ML VIAL (J2765 PER 1) IV PRN (22:00)
[2021-03-24] MEDS: GENTAMICIN 350 MG in D5W 100 ML IV ONE ×2 (22:32→23:57)
[2021-03-24 22:41] LABS: CORD GAS ABE V -5.5; CORD GAS HCO3 V 19.7 MEQ/L; CORD GAS O2 SAT V 67.7 %; CORD GAS PCO2 V 37.5 mmHg; CORD GAS PH V 7.338 UNITS; CORD GAS PO2 V 25.4 mmHg; CORD GAS SBC V 19.3 MEQ/L; CORD GAS TCO2 V 20.8 MEQ/L
[2021-03-24 22:42] LABS: CORD GAS ABE A -5.2; CORD GAS HCO3 A 21.2 MEQ/L; CORD GAS O2 SAT A 47.1 %; CORD GAS PCO2 A 44.6 mmHg; CORD GAS PH A 7.295 UNITS; CORD GAS PO2 A 19.7 mmHg; CORD GAS SBC A 19.1 MEQ/L; CORD GAS TCO2 A 22.6 MEQ/L
[2021-03-24] MEDS ORDERED: fentaNYL 100 MCG/2 ML INJECTION (J3010) As Ordered ONE (22:44)
[2021-03-24] MEDS ORDERED: BICITRA 30ML SOLN UDC PO ONE (23:00)
[2021-03-24] MEDS ORDERED: MOM 30ML SUSPENSION UDC PO PRN (23:20)
[2021-03-24] MEDS ORDERED: SIMETHICONE 80MG CHEW TAB PO PRN (23:20)
[2021-03-24] MEDS ORDERED: ACETAMINOPHEN 500 MG TAB PO PRN (23:20)
[2021-03-24] MEDS ORDERED: oxyCODONE 5MG TAB PO PRN (23:20)
[2021-03-24] MEDS ORDERED: PERCOCET 5MG/325MG TAB PO PRN (23:35)
[2021-03-24] MEDS ORDERED: fentaNYL 100 MCG/2 ML INJECTION (J3010) IV PRN (23:35)
--- NOTE | 2021-03-24 23:42 | ROOPDOC ---
[facility] Report Of Operation Report of Operation DATE OF PROCEDURE: 03/24/21 PREPROCEDURE DIAGNOSES: Non reasuring heart tone remote from delivery and 38 weeks POSTPROCEDURE DIAGNOSES: same as above, double nuchal cord- tight PROCEDURE PERFORMED: Primary low transverse delivery SURGEON: Maria Elena Medina MD TOOL GRINDER OPERATOR EXTERNAL: Vivek Murphy MD, without his assistance this procedure would not have been possible ANESTHESIA: epidural ESTIMATED BLOOD LOSS: Approximately 500 mL. COMPLICATIONS: None FINDINGS: normal ovaries and fallopian tubes, pfannenstiel incision, low transverse hysterotomy, delivery of 6lb14,3120g, 04/16, female. hysterotomy closure in two layers, o-leary suture placed on the left side. paritenium closed with 2-0 chromic, fascia closed with 0-vicryl. subc closed with 2-0 vicryl. skin closed with 3-0 monocryl on a roland needle. SPECIMENS REMOVED: Placenta DESCRIPTION OF PROCEDURE: The patient was taken to the operating room where epidural anesthesia was found to be adequate. She was then prepped and draped in the normal sterile fashion in the dorsal supine position with a leftward tilt. A Pfannenstiel skin incision was then made with the scalpel and carried through to the underlying layer of fascia. The fascia was incised in the midline and the incision extended laterally with the curved Floyd scissors. The superior aspect of the fascial incision was then grasped with the Negro clamps, elevated, and the underlying rectus muscles dissected off bluntly with the mso scissors used in the midline. Attention was then turned to the inferior aspect of this incision which, in a similar fashion, was grasped, tented up with Kocker clamps, and the rectus muscles dissected off bluntly. The rectus muscles were then in the midline, and the peritoneum identified and entered bluntly. The peritoneal opening was additionally extended superiorly and laterally by manual traction with good visualization of the bladder. the Mobius retractor was then inserted and a bladder flap was created. The lower uterine segment incised in a transverse fashion with the scalpel. The uterine incision was then bluntly extended caudally and cephalad with manual traction and the infants head delivered atraumatically followed by the body. The cord was clamped and cut and handed to awaiting pediatricians. Cord segment obtained and cord blood sent for gases. The placenta was then removed with gentle traction. The uterus was exteriorized and cleared of all clots and debris. The uterine incision was closed with 0- Monocryl in a running locked fashion. A second imbricating layer with 0- Monocryl was placed with excellent hemostasis. an O-Wainwright stitch was placed on the left aspects of hysterotomy for additional hemostasis. Normal uterus, ovaries and tubes were noted. the Mobius retractor was removed then the uterus was returned into the abdomen The gutters were cleared of all clots and the hysterotomy closure was inspected with excellent hemostasis noted again. The fascia was closed with 0-vicryl in a running fashion. The suprafascial area was irrigated, the subc was closed with 2-0 vicryl, interrupted and the skin was closed with 3-0 quill monoderm suture. optiforam dressing was applied. The patient tolerated the procedure well. Sponge, lap and needle counts were correct times two. The patient was taken to the recovery room in stable condition. XOCHILT PALACIOS MD Mar 24, 2021 23:42
[2021-03-25] VITALS (9 sets, daily range): BP systolic 106–128; BP diastolic 57–65
[2021-03-25] MEDS ORDERED: ONDANSETRON 4MG/2ML VIAL As Ordered ONE (00:15)
[2021-03-25] MEDS: KETOROLAC 30 MG/ML 1ML VIAL IV SCH ×3 (03:40→16:55)
--- NOTE | 2021-03-25 06:57 | IPNPDOC ---
Progress Note Date of Service: Mar 25, 2021 Day#: 1 Progress Note SUBJECT: Genesis is 26 yo pod1 s/p PLCD @ 38 weeks for NRHF remote from delivery of a 6lb14,3120g, 04/16, female. She has been ambulating, voiding spontaneously without issue and tolerating regular diet. Breast feeding without issue. Reports lochia is like a normal period. OBJECTIVE: VITAL SIGNS: Within normal limits, afebrile. Alert and oriented times three. normal work of breathing Heart rate: Regular rate and rhythm, Abdomen: Fundus firm at U-2. [Minimal] lochia. ASSESSMENT:Genesis is 26 yo pod1 s/p PLCD @ 38 weeks for NRHF remote from delivery of a 6lb14,3120g, 04/16, female. Vitals within normal limits, afebrile, hemodynamically stable with no evidence of infection. PLAN: 1. Discharge to home tomorrow 2. Oxycodone, Tylenol and Motrin for pain. 3. Encourage breast feeding and ambulation. 4. nexplanon for contraception for now, 5. Routine PP visit in2 and 6 weeks in clinic. 6. Discussed return precautions at length. VS, I&O, 24H, [place] Vital Signs/I&O Vital Signs Date Time Temp Pulse Resp B/P (MAP) Pulse Ox O2 Delivery O2 Flow Rate FiO2 03/25/21 05:38 97.8 77 15 112/58 (76) 99 Room Air I&O- Last 24 Hours up to 6 AM 03/25/21 06:00 Intake Total 3158.75 ml Output Total 1600 ml Balance 1558.75 ml Laboratory Data 24H LABS Laboratory Tests 2 03/24/21 18:38: Cord Arterial Blood pH 7.295, Cord Arterial Blood PCO2 44.6, Cord Arterial Blood PO2 19.7, Cord Arterial Blood HCO3 21.2, Cord Arterial Blood Total CO2 22.6, Cord Arterial Blood Base Excess -5.2, Cord Arterial Base Excess (Standard 19.1, Cord Arterial Bld Oxygen Saturation 47.1 03/24/21 18:39: Cord Venous Blood pH 7.338, Cord Venous Blood PCO2 37.5, Cord Venous Blood PO2 25.4, Cord Venous Blood HCO3 19.7, Cord Venous Blood Total CO2 20.8, Cord Venous Base Excess (Actual) -5.5, Cord Venous Base Excess (Standard) 19.3, Cord Venous Blood Oxygen Saturation 67.7 03/24/21 18:51: Serology Scanned Report Hepatitis B Testing 03/24/21 19:03: Nucleated Red Blood Cells % (auto) 0.0, Syphilis Serology NONREACTIVE CBC/BMP Laboratory Tests 03/24/21 19:03 XOCHILT PALACIOS MD Mar 25, 2021 6:00 am
[2021-03-25 09:38] LABS: HEMATOCRIT 24.7 % (36.0-47.0); HEMOGLOBIN 7.8 g/dl (12.0-15.5); MEAN CORPUSCULAR HEMOGLOBIN 28.1 pg (27.0-33.0); MEAN CORPUSCULAR HGB CONC 31.6 g/dl (32.0-36.5); MEAN CORPUSCULAR VOLUME 88.8 fl (80.0-96.0); PLATELET COUNT, AUTOMATED 253 10^3/uL (150-450); RED BLOOD COUNT 2.78 10^6/uL (4.00-5.40); WHITE BLOOD COUNT 17.3 10^3/uL (4.0-10.0)
[2021-03-25] MEDS: DOCUSATE SODIUM 100MG CAPSULE PO SCH ×2 (09:38→19:56)
[2021-03-25] MEDS: PRENATAL VITAMINS CHEWABLE TABLET PO SCH (09:38)
[2021-03-25] MEDS: oxyCODONE 5MG TAB PO PRN ×2 (13:36→19:57)
[2021-03-26] MEDS: IBUPROFEN 800 MG TAB PO SCH ×2 (00:35→07:44)
[2021-03-26 02:37] VITALS: BP 111/55
[2021-03-26] MEDS: oxyCODONE 5MG TAB PO PRN (05:16)
[2021-03-26 06:30] VITALS: BP 117/60
[2021-03-26] MEDS ORDERED: COLA100C5 PO (07:14)
[2021-03-26] MEDS ORDERED: IBUP80TA PO (07:14)
[2021-03-26] MEDS ORDERED: OXYC-517 PO (07:14)
[2021-03-26] MEDS: DOCUSATE SODIUM 100MG CAPSULE PO SCH (07:45)
[2021-03-26] MEDS: PRENATAL VITAMINS CHEWABLE TABLET PO SCH (07:45)
--- NOTE | 2021-03-26 10:52 | DSES ---
DISCHARGE SUMMARY DATE OF ADMISSION: 03/24/2021 DATE OF DISCHARGE: 03/26/2021 BRIEF HISTORY: This lady is a 26-year-old 3, now para 2, admitted from the office because of a non-reassuring heart and decreased movement. She had induction of labor and a primary section remote from delivery because of non-reassuring heart tones. A live female , 6 pounds 14 ounces (3120 grams), Apgars of 9 and 9 at one and five minutes respectively. Arterial pH 7.29, base excess -5.2, venous pH 7.33, base excess -5.5. She did have a spinal in place. On her second day, we discussed phlebitis, cystitis, mastitis, endometritis, and cellulitis, diet, exercise, pain management, perineal, breast and wound care. PHYSICAL EXAMINATION: The rest of the examination is unremarkable. Normocephalic, atraumatic. Neck full range of motion. Pupils equal and reactive to light. Distal pulses are symmetric. No evidence of DVT, PE or superficial phlebitis. Chest is clear bilaterally to bases. No wheezes or rhonchi. No CVA tenderness. Abdomen is soft, four quadrant bowel sounds are noted. Incision is clean and dry. Uterus two below. No rashes, lesions or pruritus. No arthralgia or myalgia. No complaint of joint pain. No complaint of cough, wheeze, shortness of breath or dyspnea on exertion. No urgency or frequency. No nausea, vomiting, diarrhea or constipation. LABORATORY DATA: Admitting hemoglobin 9.0, hematocrit 27.7 and platelets 287,000. Discharge hemoglobin 7.8, hematocrit 24.7 and platelets 253,000 and the patient is asymptomatic. Vital signs on discharge: Blood pressure 117/60, respirations 17, pulse 66, temp 97.0. IN SUMMARY: I have a term gestation delivered by primary section of a live female . All questions were answered; 20 minute discussion. Patient was discharged improved. Patient will pickup her medications at the pharmacy at [place], has a two-week incision check and a six-week check with [facility]. All questions were answered. Patient discharged improved.
== END 2021-03-26 12:00 | disposition home or self-care (01) | DRG 773 ==
LOC: M LDO 17:42 → M LDI 18:37 → M OBS 03-25 01:21
PROVIDERS: ADMIT Obstetrics & Gynecology; ATTEND Obstetrics & Gynecology
PROC: 3E033VJ Introduction of Other Hormone into Peripheral Vein, Percutaneous Approach (ICD-10-PCS; 2021-03-24)
PROC: 10D00Z1 Extraction of Products of Conception, Low, Open Approach (ICD-10-PCS; principal; 2021-03-24 21:50)
DX: O76 Abnormality in fetal heart rate and rhythm complicating labor and delivery (principal); Z3A.38 38 weeks gestation of pregnancy; Z37.0 Single live birth; O69.1XX0 Labor and delivery complicated by cord around neck, with compression, not applicable or unspecified